=== PATIENT | female | born 1965 | race Two or more races ===

== ENCOUNTER 2017-01-12 23:33 | Emergency (ER) | payer MEDICAID, OTHER ==
[~2017-01-12] VITALS: Ht 157.5 cm; Wt 54.6 kg
[2017-01-13] MEDS ORDERED: LORazepam 2 MG/ML, 1ML ONE (01:10)
[2017-01-13] MEDS ORDERED: LORazepam 2 MG/ML, 1ML IVPush ONE (01:30)
[2017-01-13] MEDS ORDERED: SODIUM CHLORIDE FLUSH 10ML SYR IVF ONE (01:30)
[2017-01-13] MEDS ORDERED: SODIUM CHLORIDE 0.9% 1,000ML IVBOLUS ONE (01:30)
[2017-01-13 01:38] LABS: BLOOD UREA NITROGEN 13 mg/dL (7-18)
[2017-01-13 02:05] VITALS: BP 131/74
== END 2017-01-13 02:49 ==
LOC: ED 01-13 02:36
DX: R19.7 Diarrhea, unspecified (principal); K58.9 Irritable bowel syndrome, unspecified
CPT/HCPCS: 36415; 80048; 82040; 85025; 96361; 96374; 99284; J2060; J7030